=== PATIENT | female | born 1965 | race Caucasian/White ===

== ENCOUNTER 2021-07-16 11:43 | Outpatient (CLI) | payer OTHER | END 2021-07-16 11:44 | disposition home or self-care (01) | LOC: NAV RAD 11:43 | PROVIDERS: ATTEND Nurse Practitioner Family | DX: M25.511 Pain in right shoulder (principal); M25.551 Pain in right hip; M16.11 Unilateral primary osteoarthritis, right hip; M19.011 Primary osteoarthritis, right shoulder ==